=== PATIENT | male | born 1995 | race Caucasian/White ===

== ENCOUNTER 2023-02-04 14:47 | Emergency (ER) | payer OTHER, SELFPAY ==
[2023-02-04 15:02] VITALS: BP 146/96; PULSE 89; RESP 16; TEMP 37.1; O2SAT 100
--- NOTE | 2023-02-04 15:03 | ED.URI ---
HPI - URI/Sore Throat General Chief Complaint: Upper Respiratory Infection Stated Complaint: sore throat Time Seen by Provider: 02/04/23 15:02 Source: patient Mode of arrival: ambulatory Limitations: no limitations History of Present Illness HPI Narrative: Javier is a 27-year-old male patient presenting to the clinic today with complaints of sore throat, lymph nodes swelling, and body aches. He reports body aches started yesterday and when he woke up this morning his tonsils were swollen and painful. No known fever. MD elicited complaint: sore throat and other (Body aches) Related Data Home Medications Medication Instructions Recorded Confirmed omeprazole magnesium 20 mg 20 mg PO DAILY 02/04/23 02/04/23 tablet,delayed release (Prilosec OTC) Allergies Allergy/AdvReac Type Severity Reaction Status Date / Time Macrolide Antibiotics Allergy Mild hives Verified 02/04/23 14:57 azithromycin Allergy Unknown Hives Verified 02/04/23 14:57 Review of Systems Review of Systems: Pertinent positives per HPI. Patient denies any fever, chills, rash, headache, visual changes, dizziness, cough, shortness of breath, chest pain, palpitations, nausea, vomiting, diarrhea, constipation, abdominal pain, or any urinary issues. [facility] Social History Social History Smoking status: Current every day smoker Alcohol intake: current Substance use: never Living arrangements: with family Occupation/Education: occupation Gender identity (if verbalized by the patient): Male Sexual Orientation (if Verbalized by the Patient): Straight or Heterosexual Comments At the time of my signature, I reviewed and agree with the nursing past medical, surgical, social, and family history. There is no relevant family history pertinent to the patient complaint. Exam Narrative: General: Well-developed, well nourished, in no apparent distress Head: Normocephalic, atraumatic Eyes: Pupils equally round and reactive to light bilaterally, EOM intact, sclera and conjunctive clear, no discharge, lids normal Ears: TMs intact and clear, ear canals clear, no drainage, grossly hearing normal. Nose: Nares patent, no discharge, no inflammation, no sinus tenderness. Mouth: Oral pharynx red with bilateral tonsillar enlargement and white exudate without lesions or masses, good dentition, MMM. Neck: Supple, trachea midline, enlargement of anterior cervical nodes, no thyroid masses or goiter palpable. Cardio: Regular rate and rhythm, s1 and s2 normal, no murmur appreciated. Resp: Clear to auscultation bilaterally, no rhonchi, rales, wheezing or rubs Course Course Emergency Course: Portions of this record may have been created with voice recognition software. Level of Care: Express Care Visit Vital Signs Vital signs: Vital Signs Temperature 37.1 C 02/04/23 15:02 Pulse Rate 89 02/04/23 15:02 Respiratory Rate 16 02/04/23 15:02 Blood Pressure 146/96 H 02/04/23 15:02 Pulse Oximetry 100 02/04/23 15:02 Temperature 37.1 C 02/04/23 15:02 Pulse Rate 89 02/04/23 15:02 Respiratory Rate 16 02/04/23 15:02 Blood Pressure 146/96 H 02/04/23 15:02 Pulse Oximetry 100 02/04/23 15:02 Vital signs reviewed MDM - URI/Sore Throat MDM Narrative Medical decision making narrative: At the time of visit patient is resting comfortably on the exam table. Strep screen was obtained was positive in the clinic today. Prescription for amoxicillin was sent to the pharmacy and supportive measures were discussed with the patient he voiced understanding discharge instructions and agrees to treatment plan. Differential Diagnosis Differential diagnosis: Likely upper respiratory infection, otitis media, sinusitis, viral infection, bronchitis, influenza, pharyngitis and other (COVID) Discharge Plan Discharge Clinical Impression: Acute streptococcal pharyngitis Patient Dis
== END 2023-02-04 15:08 | disposition home or self-care (01) ==
PROVIDERS: Emergency Provider Nurse Practitioner Family; PCP Family Medicine
DX: J02.0 Streptococcal pharyngitis (principal); F17.200 Nicotine dependence, unspecified, uncomplicated
CPT/HCPCS: 87880; 99213; G0463

== ENCOUNTER 2024-02-09 18:31 | Emergency (ER) | payer OTHER, SELFPAY ==
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
[2024-02-09 18:36] VITALS: BP 156/107; PULSE 98; RESP 18; TEMP 36.7; O2SAT 98
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
== END 2024-02-09 20:58 | disposition left against medical advice (07) ==
PROVIDERS: Emergency Provider Emergency Medicine; PCP Family Medicine
DX: S00.81XA Abrasion of other part of head, initial encounter (principal); F17.200 Nicotine dependence, unspecified, uncomplicated; V86.55XA Driver of 3- or 4- wheeled all-terrain vehicle (ATV) injured in nontraffic accident, initial encounter
CPT/HCPCS: 70450; 70486; 72125; 73502; 99284

== ENCOUNTER 2024-02-12 01:00 | Emergency (ER) | payer OTHER, SELFPAY ==
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
[2024-02-12 01:08] VITALS: BP 150/102; PULSE 91; RESP 16; TEMP 37; O2SAT 99
[2024-02-12 01:26] LABS: Basophils Percent Auto 0.3 % (0.2-1.2); Eosinophils Absolute Auto 0.1 K/mm3 (0-0.3); Eosinophils Percent Auto 1.5 % (0-4.4); Hematocrit 47.8 % (42.0-52.0); Hemoglobin 16.8 g/dL (14.0-18.0); Immature Granulocyte Absolute 0.01 K/mm3 (0.00-0.031); Immature Granulocyte Percent A 0.1 % (0-0.5); Lymphocytes Percent Auto 32.6 % (18.3-44.2); Mean Corpuscular HGB Conc 35.1 g/dl (32-36); Mean Corpuscular Hemoglobin 31.9 pg (26-34); Mean Corpuscular Volume 90.7 fl (80-100); Monocytes Absolute Auto 0.6 K/mm3 (0.1-0.6); Monocytes Percent Auto 7.9 % (2.6-8.5); Neutrophils Absolute Auto 4.6 K/mm3 (1.3-6.7); Neutrophils Percent Auto 57.6 % (45.5-73.1); Platelet Count Result 214 k/mm3 (150-375); Red Blood Count 5.27 M/mm3 (4.6-6.20); Red Cell Distribution Width 13.2 % (11.5-14.5)
[2024-02-12 01:29] LABS: Appearance Urine Clear (Clear); Bilirubin Urine Negative (Negative); Blood Urine Negative (Negative); Color Urine Yellow (Yellow); Glucose Urine UA Negative (Negative); Ketones Urine Negative (Negative); Leukocyte Esterase Ur Negative LEU/UL (Negative); Nitrate Urine Negative (Negative); Protein Urine Negative (Negative); Specific Grav Ur 1.004 (1.001-1.035); Urobilinogen Urine 0.2 mg/dL (<2.0); pH Urine 5.5 (5.0-9.0)
[2024-02-12 01:42] LABS: Amphetamine Screen Urine Negative (Negative); Barbiturate Screen Urine Negative (Negative); Benzodiazepines Screen Urine Negative (Negative); Cannabinoid Screen Urine Negative (Negative); Cocaine Screen Urine Negative (Negative); Methadone Screen Urine Negative (Negative); Opiate Screen Urine Negative (Negative); Phencyclidine Screen Urine Negative (Negative)
[2024-02-12 01:49] LABS: Alanine Aminotransferase 101 U/L (6-50); Albumin Level 5.2 g/dL (3.5-5.1); Alkaline Phosphatase 68 U/L (38-126); Anion Gap 14 mmol/L (4-12); Aspartate Amino Transferase 114 U/L (17-59); Bilirubin,Total 0.6 mg/dL (0.2-1.3); Blood Urea Nitrogen 6 mg/dL (9-20); Calcium 9.2 mg/dL (8.4-10.2); Carbon Dioxide 25 mmol/L (22-30); Chloride 98 mmol/L (98-107); Estimated CRCL calculation 130 ml/min; Estimated Glomerular Filt Rate > 60; Glucose 84 mg/dL (65-110); Potassium 4.3 mmol/L (3.4-5.0); Sodium 137 mmol/L (137-145)
[2024-02-12 01:50] LABS: Acetaminophen < 10 ug/mL (10-30); Salicylate < 1.0 mg/dL (2-20)
--- NOTE | 2024-02-12 02:06 | PC.NURSE ---
Patient did ambulate out of his room to the waiting room with a steady gait. Patient was walked back with ED security to his room.
--- NOTE | 2024-02-12 02:25 | PC.NURSE ---
0215 Patient in room, ED security at bedside. Patient informed that he was made involuntary by PD and is required to stay. Patient did verbalize understanding. Patient then changed into green scrubs and belongings placed in locked cabinet.
[2024-02-12 02:28] LABS: SARS-CoV-2 RNA PCR Negative (Negative)
[2024-02-12 02:36] LABS: Ethanol 339 mg/dL (<10)
[2024-02-12 02:50] LABS: Add Urine Microscopic? NO
--- NOTE | 2024-02-12 02:58 | PC.NURSE ---
Patient states he is anxious and wants to go home. Patient pacing room and in hallway with a steady unassisted gait. Patient denies any SI/HI at this time. Patient states I just want to go home. I just need to sleep in my own bed. This RN went to speak with patient and offer a medication to assist with easing his anxiety. Patient refused any medication to help with his anxiety. Patient repeatedly stating he wants to go home. This RN educated patient on process of medical clearance and Crisis evaluation but that he needs to be clinically sober first. Patient informed that his alcohol level is critically high and he needs to be at the legal limit or below. Patient did verbalize understanding of process for medical clearance and evaluation. Patient given water upon request. Patient stated so I am just going to have to nap this off then. This RN turned lights off and answered patients questions. Patient still denying any SI/HI at this time. Patient resting on bed, no acute distress noted.
[2024-02-12 08:00] VITALS: BP 142/80; PULSE 80; RESP 16; TEMP 36.6; O2SAT 100
[2024-02-12 12:22] LABS: Ethanol 79 mg/dL (<10)
[2024-02-12 14:40] VITALS: BP 146/80; PULSE 88; RESP 16; TEMP 36.6; O2SAT 100
== END 2024-02-12 14:42 | disposition home or self-care (01) ==
PROVIDERS: Emergency Provider Emergency Medicine; PCP Family Medicine
DX: F10.129 Alcohol abuse with intoxication, unspecified (principal); Y90.8 Blood alcohol level of 240 mg/100 ml or more; Z79.899 Other long term (current) drug therapy
CPT/HCPCS: 36415; 80053; 80307; 81003; 84443; 85025; 87635; 99283